=== PATIENT | male | born 1975 | race Caucasian/White ===

== ENCOUNTER 2019-03-08 06:05 | Day surgery (SDC) | payer OTHER ==
[~2019-03-08] VITALS: Ht 175.3 cm; Wt 78.6 kg
[2019-03-08] MEDS ORDERED: PRIL40 PO (06:19)
[2019-03-08] MEDS ORDERED: IMITREX50 MG PO (06:20)
[2019-03-08] MEDS ORDERED: ZANAFLEX2 MG PO (06:21)
[2019-03-08] MEDS ORDERED: SINGULAIR 110 MG/TAB PO (06:21)
[2019-03-08] MEDS ORDERED: ULTRAM 50MG TAB50 MG PO (06:22)
[2019-03-08] MEDS ORDERED: COLACE 100100 MG/CAP PO (06:23)
[2019-03-08] MEDS ORDERED: TYLENOL 325MG325 MG PO (06:24)
[2019-03-08] MEDS ORDERED: VITAMIN D31000 I1 PO (06:25)
[2019-03-08] MEDS ORDERED: FLONASE NASAL S16 GM NS (06:26)
[2019-03-08 06:51] VITALS: BP 116/88; PULSE 76; TEMP 97.9
[2019-03-08 07:34] VITALS: BP 135/86; PULSE 72; TEMP 97.9
[2019-03-08 08:00] VITALS: BP 118/82; PULSE 79; TEMP 97.9
--- NOTE | 2019-03-08 08:00 | NUR ---
The patient arrived back to [facility] at this time. The patient appears drowsy but arouses easily to his name. The patient ambulated from the cart to the recliner in his room with the stand by assistance of two nurses and appeared to tolerate the activity well. Post procedure vital signs were started at this time. The patient agrees to try some orange juice and chocolate pudding at this time. at bedside. Call light is within reach. Will continue to monitor the patient.
[2019-03-08 08:15] VITALS: BP 111/77; PULSE 68
--- NOTE | 2019-03-08 08:15 | NUR ---
The patient appears drowsy but arouses easily to his name. Dr. Guadalupe has been in to talk to the patient and his family about the findings of the procedures. Will continue to monitor the patient.
[2019-03-08 08:30] VITALS: BP 108/80; PULSE 85
--- NOTE | 2019-03-08 08:30 | NUR ---
The patient appear much more alert and has finished his juice and pudding and requests a second pudding. The patient verbalizes a desire to be discharged home.
--- NOTE | 2019-03-08 08:45 | NUR ---
Discharge instructions were reviewed with the patient and at this time. They both verbalized understanding and have no questions for the nurse at this time. The patient's IV to his right hand was remvoed and a pressure dressing was applied to the site. The nurse instructed the patient to get dressed and notify the staff when he is ready to be escorted out.
--- NOTE | 2019-03-08 08:52 | NUR ---
The patient was escorted out via wheelchair to a private vehicle by DAVON Isabel. The patient's belongings and discharge paperwork were sent with him. The patient's is present to drive him home.
== END 2019-03-08 08:55 | disposition home or self-care (01) ==
LOC: SDCO 06:05
DX: K92.1 Melena (principal); K59.00 Constipation, unspecified; R19.7 Diarrhea, unspecified; K60.1 Chronic anal fissure; K21.9 Gastro-esophageal reflux disease without esophagitis; K29.30 Chronic superficial gastritis without bleeding
CPT/HCPCS: J2250; J2405; J3010; J7030

== ENCOUNTER → 2019-04-12 | Outpatient (CLI) | payer OTHER ==
[~2019-04-12] MED LIST: COLACE 100100 MG/CAP PO; FLONASE NASAL S16 GM NS; IMITREX50 MG PO; PRIL40 PO; SINGULAIR 110 MG/TAB PO; TYLENOL 325MG325 MG PO; ULTRAM 50MG TAB50 MG PO; VITAMIN D31000 I1 PO; ZANAFLEX2 MG PO
== END ==
LOC: COL.RAD 09:17
DX: R10.11 Right upper quadrant pain (principal); R11.2 Nausea with vomiting, unspecified; R19.7 Diarrhea, unspecified; R14.0 Abdominal distension (gaseous); R14.3 Flatulence
CPT/HCPCS: A9537; J2805